=== PATIENT | female | born 1975 | race Caucasian/White ===

== ENCOUNTER 2019-04-28 12:55 | Outpatient (CLI) | payer OTHER, SELFPAY ==
--- NOTE | ~2019-04-28 | MMUS_ITS ---
EXAMINATION: MM diagnostic penny BI w bettina, US breast RT limited HISTORY: Right breast lump follow-up, left breast pain TECHNIQUE: ML, MLO and cc 3-D tomosynthesis images of both breasts were performed and synthetic 2-D i mages were generated. CAD analysis was submitted and interpreted. High resolution targeted right [address] [facility] ultrasound was performed. COMPARISON: 07/22/2017 right screening and diagnostic left digital mammogram and limited left breast u ltrasound 06/20/2013 bilateral diagnostic digital mammogram BREAST PARENCHYMAL COMPOSITION: There are scattered areas of fibroglandular density. FINDINGS: MAMMOGRAPHIC FINDINGS: There is stable bilateral mammographic mild asymmetry, unchanged since 06/20/2013. No interval mass or architectural distortion, malignant calcification, skin thickening or retraction or significant new or developing density is evident. There is minimal bilateral benign calcification. ULTRASOUND: At area of a palpable lump at 1:00 9 to 10 cm from the nipple there is a parallel circumscribed hyper echoic 8.6 x 7.8 x 3.7 mm mass, most likely a benign lipoma. At 9:00 10 cm from the nipple and another palpable area is a mixed solid and apparently fatty approxi mately 6.1 x 4.5 x 6.9 mm area without suspicious shadowing. 6 month follow-up diagnostic right mammo gram and right breast ultrasound examination are recommended. IMPRESSION: 1. Probably benign sonographic finding of right breast at 9:00 10 cm from nipple 2. 6 month diagnostic right mammogram and targeted right breast ultrasound follow-up are recommended. Reviewed, dictated and finalized at location A. [facility]ICAL W[facility]ER IMPRESSION: 1. Probably benign sonographic finding of right breast at 9:00 10 cm from nippl e 2. 6 month diagnostic right mammogram and targeted right breast ultrasound foll ow-up are recommended.
== END 2019-04-28 12:56 | disposition home or self-care (01) ==
PROVIDERS: PCP Family Medicine; Visit Provider Advanced Practice Midwife
DX: N63.0 Unspecified lump in unspecified breast (principal)
CPT/HCPCS: 76642; 77062; 77066; G0279

== ENCOUNTER 2019-06-02 09:53 | Emergency (ER) | payer OTHER, SELFPAY ==
--- NOTE | ~2019-06-02 | XR_ITS ---
XR hand LT min 3V 06/02/2019 10:22 INDICATION: Left third and fourth finger pain after trauma PROCEDURE: 3 views left hand COMPARISON: No prior studies for comparison. FINDINGS: Fracture, dislocation or subluxation is not identified. The soft tissues appear within norm al limits. No foreign bodies are identified. IMPRESSION: 1: NO ACUTE BONE OR JOINT ABNORMALITY IDENTIFIED. Reviewed, dictated and finalized at location B. T ATTENDANT
--- NOTE | 2019-06-02 10:01 | ED.UPPEXIN ---
HPI - Extremity Injury (Upper) General Chief Complaint: Extremity Injury, Upper Stated Complaint: injured finger Time Seen by Provider: 06/02/19 10:25 Source: patient and RN notes reviewed Mode of arrival: ambulatory Limitations: no limitations History of Present Illness HPI narrative: 41 child female presents with concern for injury to the finger of her left hand. Reports yesterday she was grabbing her dogs harness when the dog ran off twisting third digit of her left hand. She reports pain, swelling, bruising to the distal end of the finger. MD complaint: injury to: left and finger Related Data Home Medications Medication Instructions Recorded Confirmed amitriptyline 50 mg PO HS 06/02/19 06/02/19 cyclobenzaprine 10 mg PO TID 06/02/19 06/02/19 hydrochlorothiazide 50 mg PO DAILY 06/02/19 06/02/19 hydrocodone-acetaminophen 1 tablet PO Q6H PRN 06/02/19 06/02/19 losartan 100 mg PO DAILY 06/02/19 06/02/19 Allergies Allergy/AdvReac Type Severity Reaction Status Date / Time Penicillins Allergy Intermediate RASH Verified 06/02/19 10:13 adhesive Allergy Unknown Rash Verified 06/02/19 10:13 promethazine Allergy Unknown Dyspnea / Verified 06/02/19 10:13 SOB Review of Systems Review of Systems: Narrative: CONSTITUTIONAL: Denies malaise, chills, sweats, or fever. SKIN: Swelling or bruising to the distal end of the third digit of left hand MUSCULOSKELETAL: Reports pain to the distal end of the third digit of left hand NEUROLOGIC: Denies numbness, weakness All systems reviewed & are unremarkable except as noted in HPI and below PMFSH Social History Social History Smoking status: Never smoker Alcohol intake: current Comments At time of signature, agree with nursing past medical, surgical, social and family history. There is no relevant family history pertinent to the presenting complaint Exam Narrative: Exam Narrative: GENERAL: Well-appearing, well-nourished, and in no acute distress. HEAD: Normocephalic, atraumatic. EYES: PERRLA, conjunctivae clear NECK: Supple. CHEST: Speaks in full sentences. No respiratory distress. HEART: Regular rate and rhythm. Normal and equal peripheral pulses. EXTREMITIES: Third digit of left hand has kary sensation, limited range of motion. Moderate distal digit edema mild ecchymosis 5/5 strength with proximal digit flexion and extension, 3 out of 5 strength with distal digit flexion. Normal sensation with sensitivity to light touch and pain. No open wounds, no skin tenting, no devitalized tissue or atrophy, no trophic changes, no obvious deformity, alignment normal, no point tenderness, nearby joints and structures intact. Distal pulses palpable and equal bilaterally, skin warm, dry, pink. Capillary refill less than 3 seconds. SKIN: Warm, dry, no rash. NEURO: Alert and oriented x3. PSYCH: Normal mood and affect Course Course Emergency Course: Findings with patient, exam findings with patient. Instructed patient that if symptoms do not improve she should follow-up with her primary care doctor for reevaluation of her finger. Patient is aware of diagnosis, understands and agrees to treatment plan. Anticipatory guidance given. Patient agrees to follow-up as directed and is aware of reasons to seek care at the emergency department. Portions of this record may have been created with voice recognition software Vital Signs Vital signs: Reviewed. MDM - Extremity Injury (Upper) MDM Narrative Medical decision making narrative: Patients injury and pain is consistent with musculoskeletal etiology. No signs of neurological or vascular compromise on exam. Compartments and tissues are soft without signs of compartment syndrome. Pain is felt appropriate for further evaluation on an outpatient basis. Differential Diagnosis Differential diagnosis: Likely finger sprain Imaging Data My impression: Images reviewed, interpreted by radiologist, agree, see report. Radiologist's impression: XR hand LT min
[2019-06-02 10:03] VITALS: BP 117/70; PULSE 86; RESP 18; TEMP 36.9; O2SAT 98
== END 2019-06-02 10:48 | disposition home or self-care (01) ==
PROVIDERS: Emergency Provider Nurse Practitioner; PCP Internal Medicine Gastroenterology
DX: S63.613A Unspecified sprain of left middle finger, initial encounter (principal); X50.9XXA Other and unspecified overexertion or strenuous movements or postures, initial encounter; I10 Essential (primary) hypertension
CPT/HCPCS: 29130; 73130; 99213; G0463

== ENCOUNTER 2020-07-18 09:25 | Outpatient (CLI) | payer OTHER, SELFPAY ==
--- NOTE | 2020-07-18 10:30 | NEURO_ITS ---
Impression: # Complains of right upper extremity pain. # No Carpal Tunnel Syndrome. # No ulnar neuropathy. # Normal needle/EMG exam. # Clinical correlation recommended. Nerve Conduction Studies Anti Sensory Summary Table Stim Site NR Peak (ms) P-T Amp (?V) Site1 Site2 Delta-P (ms) Dist (cm) Devin (m/s) Left Median Anti Sensory (2-3nd Digit) Wrist 2.5 70.0 Wrist 2-3nd Digit 2.5 14.0 56 Wrist 2.5 69.6 Wrist 2-3nd Digit 2.5 14.0 56 Right Median Anti Sensory (2-3nd Digit) Wrist 2.5 74.9 Wrist 2-3nd Digit 2.5 14.0 56 Wrist 2.5 48.8 Wrist 2-3nd Digit 2.5 14.0 56 Left Radial Anti Sensory (Base 1st Digit) Wrist 2.1 16.8 Wrist Base 1st Digit 2.1 0.0 Right Radial Anti Sensory (Base 1st Digit) Wrist 2.2 12.9 Wrist Base 1st Digit 2.2 0.0 Left Ulnar Anti Sensory (5th Digit) Wrist 2.0 45.5 Wrist 5th Digit 2.0 14.0 70 Right Ulnar Anti Sensory (5th Digit) Wrist 2.0 43.7 Wrist 5th Digit 2.0 14.0 70 Motor Summary Table Stim Site NR Onset (ms) O-P Amp (mV) Site1 Site2 Delta-0 (ms) Dist (cm) Devin (m/s) Left Median Motor (Abd Poll Brev) Wrist 3.2 4.2 Elbow Wrist 4.1 26.0 63 Elbow 7.3 2.4 Right Median Motor (Abd Poll Brev) Wrist 2.9 5.4 Elbow Wrist 4.3 26.0 60 Elbow 7.2 3.5 Left Ulnar Motor (Abd Dig Minimi) Wrist 2.8 5.3 A Elbow Wrist 4.2 25.0 60 A Elbow 7.0 5.4 Right Ulnar Motor (Abd Dig Minimi) Wrist 2.2 6.3 A Elbow Wrist 4.6 27.0 59 A Elbow 6.8 3.7 F Wave Studies NR F-Lat (ms) L-R F-Lat (ms) Left Median (Mrkrs) (Abd Poll Brev) 25.74 0.94 Right Median (Mrkrs) (Abd Poll Brev) 26.68 0.94 Left Ulnar (Mrkrs) (Abd Dig Min) 26.72 0.26 Right Ulnar (Mrkrs) (Abd Dig Min) 26.46 0.26 EMG Side Muscle Nerve Root Ins Act Fibs Amp Dur Recrt Comment Right 1stDorInt Ulnar C8-T1 Nml Nml Nml Nml Nml Right Ext Indicis Radial (Post Int) C7-8 Nml Nml Nml Nml Nml Right Ext Digitorum Radial (Post Int) C7-8 Nml Nml Nml Nml Nml Right BrachioRad Radial C5-6 Nml Nml Nml Nml Nml Right PronatorTeres Median C6-7 Nml Nml Nml Nml Nml Right Abd Poll Brev Median C8-T1 Nml Nml Nml Nml Nml Left 1stDorInt Ulnar C8-T1 Nml Nml Nml Nml Nml Left Ext Indicis Radial (Post Int) C7-8 Nml Nml Nml Nml Nml Left Ext Digitorum Radial (Post Int) C7-8 Nml Nml Nml Nml Nml Left BrachioRad Radial C5-6 Nml Nml Nml Nml Nml Left PronatorTeres Median C6-7 Nml Nml Nml Nml Nml Left Abd Poll Brev Median C8-T1 Nml Nml Nml Nml Nml MTDD
== END 2020-07-18 09:26 | disposition home or self-care (01) ==
LOC: ANHNEURO 09:28
PROVIDERS: PCP Internal Medicine Gastroenterology; Visit Provider Psychiatry & Neurology Neurology
DX: R20.0 Anesthesia of skin (principal)
CPT/HCPCS: 95886; 95911